=== PATIENT | male | born 1995 | race Caucasian/White ===

== ENCOUNTER 2022-08-13 20:38 | Inpatient (IN) | payer SELFPAY ==
[~2022-08-13] VITALS: Ht 188 cm; Wt 86.4 kg
[2022-08-13 21:36] LABS: BASO % 0.4 % (0.0-2.0); EOS # 0.2 K/mm3 (0.0-0.7); EOS % 2.9 % (0.0-4.0); GRAN # 2.9 K/mm3 (1.4-6.5); GRAN % 53.4 % (42.2-75.2); HEMATOCRIT 41.6 % (42.0-52.0); HEMOGLOBIN 14.6 g/dl (13.5-18.0); LYMPH # 1.8 K/mm3 (1.2-3.4); LYMPH % 33.2 % (20.0-51.0); MEAN CELL VOLUME 85 fl (80.0-100.0); MEAN CORPUSCULAR HEMOGLOBIN 30 pg (27-31); MEAN CORPUSCULAR HGB CONC 35 g/dl (33.0-37.0); MONO # 0.5 K/mm3 (0.1-0.6); MONO % 9.9 % (1.7-9.3); PLATELET COUNT 215 K/mm3 (130-400); RED BLOOD COUNT 4.87 M/mm3 (4.20-5.60); REDCELL DISTRIBUTION WIDTH-CV 12.6 % (11.5-14.5)
[2022-08-13 21:51] LABS: CALCIUM 9.1 mg/dL (8.4-10.2); CREATININE, serum 1.15 mg/dL (0.72-1.25); POTASSIUM 4.4 mmol/L (3.5-4.5)
[2022-08-13 22:04] LABS: ERYTHROCYTE SEDIMENTATION RATE 1 mm/hr (0-15)
[2022-08-14] VITALS (8 sets, daily range): BP systolic 119–139; BP diastolic 65–79; PULSE 64–78; TEMP 97.1–98.4
--- NOTE | 2022-08-14 01:14 | NUR ---
PATIENT BROUGHT UP FROM ED WITH NUMBNESS AND WEAKNESS TO LLE. PATIENT ALERT AND ORIENTED X3 AND DENIES PAIN. PATIENT ENCOURAGED TO CALL FOR HELP WHEN WANTING TO STAND OR AMBULATE AND VOICES UNDERSTANDING. PATIENT DENIES FURTHER QUESTIONS OR CONCERNS AT THIS TIME
[2022-08-14 06:50] LABS: BASO % 0.4 % (0.0-2.0); EOS # 0.2 K/mm3 (0.0-0.7); EOS % 3.4 % (0.0-4.0); GRAN # 2.8 K/mm3 (1.4-6.5); HEMATOCRIT 39.4 % (42.0-52.0); HEMOGLOBIN 13.5 g/dl (13.5-18.0); LYMPH # 2.2 K/mm3 (1.2-3.4); LYMPH % 39.2 % (20.0-51.0); MEAN CELL VOLUME 87 fl (80.0-100.0); MEAN CORPUSCULAR HEMOGLOBIN 30 pg (27-31); MEAN CORPUSCULAR HGB CONC 34 g/dl (33.0-37.0); MEAN PLATELET VOLUME 10.2 fl (7.4-10.4); MONO # 0.4 K/mm3 (0.1-0.6); MONO % 7.8 % (1.7-9.3); PLATELET COUNT 206 K/mm3 (130-400); RED BLOOD COUNT 4.52 M/mm3 (4.20-5.60); REDCELL DISTRIBUTION WIDTH-CV 12.6 % (11.5-14.5)
[2022-08-14 06:54] LABS: CALCIUM 8.8 mg/dL (8.4-10.2); CREATININE, serum 1.01 mg/dL (0.72-1.25); POTASSIUM 3.7 mmol/L (3.5-4.5)
--- NOTE | 2022-08-14 09:03 | NUR ---
SW met with the patient to discuss discharge plan. The patient lives in [place] with his parents: Louisa and Tristin (ph#[phone]). He reports that he is normally independent with ADLs, but has been needing some assistance lately. His mother helps him, when needed. He does not have any DME. The patient does not have a PCP here. He would be interested in the hospital helping him get set up with one. He plans to receive him medications from either [facility] or [email or web address]. The patient does not have a DPOA-HC and he was not interested in completing one at this time. He states that he is not and does not have any children. His parents are his next of kin. The patient plans to return home with his parents upon discharge. *Discharge plan: home with parents*
--- NOTE | 2022-08-14 09:15 | NUR ---
Pt awake and laying in bed. Shift assessment completed. Telemetry remains on. INT in L AC intact. SCDs on LEAH. Pt requested assistance to the bathroom. Pt has difficulty moving LLE and uses upper extremities to move LLE out of bed. Pt expresses "it feels like dragging a wooden log with me" during ambulation. Returned to bed safely. No further request at this time. Call light within reach.
--- NOTE | 2022-08-14 10:35 | NUR ---
Initial visit; Patient out of room. spoke with his parents who said French was having an MRI and thanked [employer] for stopping. They stated they would tell French Rod stopped to see him and [employer] offered to keep him in her prayers. wished parents and French well and offered God's blessings.
[2022-08-15] VITALS (13 sets, daily range): BP systolic 97–126; BP diastolic 49–73; PULSE 52–87; TEMP 97.5–98.1
[2022-08-15 06:38] LABS: BASO % 0.3 % (0.0-2.0); EOS # 0.2 K/mm3 (0.0-0.7); EOS % 2.5 % (0.0-4.0); GRAN # 3.4 K/mm3 (1.4-6.5); GRAN % 53.1 % (42.2-75.2); HEMATOCRIT 40.6 % (42.0-52.0); HEMOGLOBIN 14.1 g/dl (13.5-18.0); LYMPH # 2.3 K/mm3 (1.2-3.4); LYMPH % 36.2 % (20.0-51.0); MEAN CELL VOLUME 84 fl (80.0-100.0); MEAN CORPUSCULAR HEMOGLOBIN 29 pg (27-31); MEAN CORPUSCULAR HGB CONC 35 g/dl (33.0-37.0); MEAN PLATELET VOLUME 10.3 fl (7.4-10.4); MONO # 0.5 K/mm3 (0.1-0.6); MONO % 7.7 % (1.7-9.3); PLATELET COUNT 215 K/mm3 (130-400); RED BLOOD COUNT 4.81 M/mm3 (4.20-5.60); REDCELL DISTRIBUTION WIDTH-CV 12.4 % (11.5-14.5)
[2022-08-15 06:56] LABS: CALCIUM 9.1 mg/dL (8.4-10.2); CREATININE, serum 1.18 mg/dL (0.72-1.25); POTASSIUM 3.8 mmol/L (3.5-4.5)
--- NOTE | 2022-08-15 07:25 | NUR ---
Pt laying in bed. Shift assessment completed. VSS. INT in L AC intact; no edema or redness. SCDs on LEAH. No complaints or request at this time. Call light within reach.
--- NOTE | 2022-08-15 15:30 | NUR ---
Decadrom order clarified with Dr Lazaro. Only wants 10mg given now then follow with 6mg six hours later.
[2022-08-16] VITALS (10 sets, daily range): BP systolic 110–134; BP diastolic 42–74; PULSE 68–92; TEMP 97.6–98.5
--- NOTE | 2022-08-16 09:30 | NUR ---
INFORMED HOSPITAL PA THERE IS NO CONSENT ORDERED FOR A LUMBAR PUNCTURE, SHE STATED RADIOLOGY WOULD NEED TO PLACED THAT ORDER AND TO CALL THEM. RADIOLOGY CALLED, GABE STATED THE RN GETS THE CONSENT. I INFORMED HIM I AM AWARE OF THAT,BUT THERE IS NO ORDER FOR WHAT THE CONSENT NEEDS TO STATE. HE DID NOT UNDERSTAND WHAT I MEANT. CUSTOMER CONTACT REPRESENTATIVE AWARE AND DIRECTOR AWARE THAT THIS RN WILL SEND LP CONSENT FORM DOWN WITH PATIENT NOT SIGNED. WHEN LP BROUGHT UP PATIENT STATED HE WAS UNAWARE HE WAS SUPPOSED TO RECIEVE ANY PROCEDURE TODAY AND IS NOT AWARE OF WHAT A LUMBAR PUNCTURE IS.
--- NOTE | 2022-08-16 10:29 | NUR ---
ATTEMPTED TO CALL RADIOLOGY, NO ANSWER
[2022-08-16 13:11] LABS: CSF APPEARANCE CLEAR; CSF COLOR COLORLESS
[2022-08-16 13:12] LABS: CSF RBC < 1 /mm3 (0-0)
[2022-08-16 13:21] LABS: GLUCOSE,CSF 91 mg/dL (40-70); TOTAL PROTEIN,CSF 42 mg/dL (15-45)
[2022-08-16 13:43] LABS: CSF MONONUCLEAR 100 % (70-100); CSF POLYMORPHONUCLEAR 0 % (0-6)
--- NOTE | 2022-08-16 18:53 | NUR ---
PATIENT AWAKE AND ALERT, RESTING IN BED. NO NEEDS OR COMPLAINTS AT THIS TIME. CALL [facility] WITH IN REACH.
[2022-08-17] VITALS (8 sets, daily range): BP systolic 112–123; BP diastolic 56–72; PULSE 76–94; TEMP 97.6–98.6
--- NOTE | 2022-08-17 09:00 | NUR ---
PATIENT ALERT AND AWAKE, RESTING IN BED. STILL COMPLAINING OF A HEADACHE THAT STARTS AT THE BASE OF HIS HEAD AND GOES OVER THE TOP, AND STOPS AT THE BACK OF HIS EYES. CALL LIGHT WITH IN REACH, WILL INFORM MD.
--- NOTE | 2022-08-17 15:34 | NUR ---
Admissions verified that the patient's insurance is not active and he is self pay. PT is recommending a FWW and outpatient PT. MARIO met with the patient and his mother. The patient's mother states that the patient should still have coverage until the end of the month and then COBRA. She asks if they can speak to financial counseling while here. The patient and his mother would also like to try and get his FWW from [facility]. SW consulted Financial Counseling and admissions about the insurance. MARIO contacted and faxed the FWW order to Noel at [facility]. MARIO staffed with the PA. The patient will likely be here through the weekend. *Discharge plan: home with parents*
[2022-08-18] VITALS (12 sets, daily range): BP systolic 112–125; BP diastolic 54–83; PULSE 63–97; TEMP 97.6–98.6
--- NOTE | 2022-08-18 22:09 | NUR ---
ATTEMPT TO GIVE IV DECADRON AT THIS TIME. THE PATIENT IS HESITANT AND SAID HE WAS WANTING TO TALK TO THIS RN ABOUT IT. HE STATES THAT HE HAS HAD REALLY BAD HEADACHES SINCE STARTING THE STEROIDS, AND THAT HE'D PREFER IF WE LOWERED THE DOSE OR CHANGED IT ALL TOGETHER. THIS RN CALLED HETAL VILLARREAL WHO SAID SHE WOULD LOOK INTO DOSING AND EITHER LOWER IT OR EVEN CHANGE THE FREQUENCY. WILL WAIT FOR ORDERS.
--- NOTE | 2022-08-18 23:20 | NUR ---
Shift assessment completed around 2114. Pt lying on his right side. A&O x4. Pt expressing some concerns regarding his decadron medication, and feeling that it is worsening his physical condition; he requests to have his dose lowered down. Encouraged pt to express this concern to the provider since the nurses can't adjust medication doses without a provider's order. Pt verbalized understanding. He also reports having an upset stomach, headache and lower back pain at this time. Warm blanket and sprite with saltine crackers are offered and pt agrees to try these before trying any medication. LFA INT is CDI. Belongings and call light are within reach.
[2022-08-19] VITALS (11 sets, daily range): BP systolic 108–134; BP diastolic 55–67; PULSE 67–100; TEMP 97.8–98.5
--- NOTE | 2022-08-19 18:15 | NUR ---
UNABLE TO PULL PATIENT ACYCLOVIR. PHARM GONE. NOT IN PATIENT BIN OR FRIDGE. INFORMED CHARGE.
--- NOTE | 2022-08-19 18:28 | NUR ---
REQUEST FOR MED VERIFICATION FAXED TO [facility].
--- NOTE | 2022-08-19 18:42 | NUR ---
NIGHT PEDIATRIC OCCUPATIONAL THERAPIST MADE AWARE ACYCLOVIR NEEDS TO BE HUNG, NIGHT PHARM FAXED FOR VERIFICATION, AWAITING RESPONSE AND VERIFICATION STILL.
[2022-08-20 00:25] VITALS: BP 110/58; PULSE 75; TEMP 98.1
[2022-08-20 01:00] VITALS: PULSE 75; TEMP 98.1
--- NOTE | 2022-08-20 01:06 | NUR ---
Pt in bed for shift assessment around 2100. A&O x4. Pt reports feeling good. No needs or concerns reported. Pt reports feeling a headache, but refuses any pain intervention. LFA INT is CDI. Belongings and call light are within reach.
[2022-08-20 04:37] VITALS: BP 103/51; PULSE 62; TEMP 98.7
[2022-08-20 05:01] VITALS: PULSE 62; TEMP 98.7
[2022-08-20 06:53] LABS: BASO % 0.1 % (0.0-2.0); GRAN # 8.8 K/mm3 (1.4-6.5); GRAN % 83.6 % (42.2-75.2); HEMATOCRIT 41.1 % (42.0-52.0); HEMOGLOBIN 14.7 g/dl (13.5-18.0); LYMPH % 9.3 % (20.0-51.0); MEAN CELL VOLUME 84 fl (80.0-100.0); MEAN CORPUSCULAR HEMOGLOBIN 30 pg (27-31); MEAN CORPUSCULAR HGB CONC 36 g/dl (33.0-37.0); MEAN PLATELET VOLUME 9.8 fl (7.4-10.4); MONO # 0.6 K/mm3 (0.1-0.6); PLATELET COUNT 227 K/mm3 (130-400); RED BLOOD COUNT 4.91 M/mm3 (4.20-5.60); REDCELL DISTRIBUTION WIDTH-CV 12.2 % (11.5-14.5)
[2022-08-20 07:11] LABS: C-REACTIVE PROTEIN 0.03 mg/dL (0.00-0.50); CALCIUM 8.8 mg/dL (8.4-10.2); CREATININE, serum 0.96 mg/dL (0.72-1.25); POTASSIUM 3.9 mmol/L (3.5-4.5)
[2022-08-20 08:00] VITALS: BP 113/54; PULSE 68; TEMP 98.4
[2022-08-20 10:19] LABS: HSV 2 DNA PCR QUAL Not Detected (())
[2022-08-20 11:08] VITALS: BP 118/58; PULSE 72; TEMP 98.2
[2022-08-20] MEDS ORDERED: PROTONIX 40MG T40 MG PO (12:46)
[2022-08-20] MEDS ORDERED: PREDNISONE10 MG PO (12:46)
[2022-08-20] MEDS ORDERED: MOTRIN 600600 MG/TAB PO (12:47)
--- NOTE | 2022-08-20 14:00 | NUR ---
PATIENT AND HIS MOTHER GIVEN DISCHARGE INSTRUCTIONS AND EDUCATION. NEW MEDICATIONS REVIEWED. FOLLOW UP MRI DISCUSSED. ALL QUESTIONS ANSWERED. IV REMOVED.
--- NOTE | 2022-08-20 14:31 | NUR ---
PATIENT TAKEN TO ED ENTRANCE BY PCT VIA WHEELCHAIR. PATIENT LEFT IN STABLE CONDITION WITH HIS MOTHER.
--- NOTE | 2022-08-20 15:59 | NUR ---
Drywall Boardhanger made patient an appointment at [facility] and provided appointment to RN to put in discharge orders.
[2022-08-22 12:05] LABS: CSF OLIG BD INTERPRETATION 9 bands (<2); SE OLIGOCLONAL BANDING 0 bands (())
[2022-08-22 16:17] LABS: .COPPER,S 63 mcg/dL (73-129)
== END 2022-08-20 14:30 | disposition home or self-care (01) | DRG 99 ==
LOC: COL.ER 20:38 → MEDICAL 22:31
PROVIDERS: Emergency Medicine; Student in an Organized Health Care Education/Training Program; ADMIT Hospitalist
PROC: 009U3ZX Drainage of Spinal Canal, Percutaneous Approach, Diagnostic (ICD-10-PCS; principal; 2022-08-16)
PROC: 3E0R3GC Introduction of Other Therapeutic Substance into Spinal Canal, Percutaneous Approach (ICD-10-PCS; 2022-08-17)
DX: G04.89 Other myelitis (principal); D43.4 Neoplasm of uncertain behavior of spinal cord; G97.1 Other reaction to spinal and lumbar puncture; R11.0 Nausea; T38.0X5A Adverse effect of glucocorticoids and synthetic analogues, initial encounter; R03.0 Elevated blood-pressure reading, without diagnosis of hypertension; M41.9 Scoliosis, unspecified; T39.395A Adverse effect of other nonsteroidal anti-inflammatory drugs [NSAID], initial encounter; Z86.16 Personal history of COVID-19
CPT/HCPCS: OP; A9575; C9113; G0378; J0133; J1100; J2405; J7050; Q9967